=== PATIENT | female | born 1985 | race Two or more races ===

== ENCOUNTER 2021-02-17 23:37 | Emergency (ER) | payer SELFPAY ==
--- NOTE | 2021-02-17 23:54 | EDM.PDOC ---
ED HPI GENERAL MEDICAL PROBLEM - General Chief Complaint: General Stated Complaint: MEDICAL CLEARANCE Time Seen by Provider: 02/17/21 23:40 Source of Information: Reports: Patient History Limitations: Reports: No Limitations - History of Present Illness INITIAL COMMENTS - FREE TEXT/NARRATIVE: Patient is a 35-year-old female brought in police custody for medical clearance. Patient she has a history of high blood pressure does not see a physician for does not take any medication. On exam she does not have any chest pain shortness of breath fever chills nausea vomiting. Patient has no complaints today. ED ROS GENERAL - Review of Systems Review Of Systems: See Below Constitutional: Reports: No Symptoms HEENT: Reports: No Symptoms Respiratory: Reports: No Symptoms Cardiovascular: Reports: No Symptoms Endocrine: Reports: No Symptoms GI/Abdominal: Reports: No Symptoms : Reports: No Symptoms Musculoskeletal: Reports: No Symptoms Skin: Reports: No Symptoms Neurological: Reports: No Symptoms Psychiatric: Reports: No Symptoms Hematologic/Lymphatic: Reports: No Symptoms Immunologic: Reports: No Symptoms ED EXAM, GENERAL - Physical Exam Exam: See Below Exam Limited By: No Limitations General Appearance: Alert, WD/WN, No Apparent Distress Eye Exam: Bilateral Eye: EOMI, PERRL Neck: Normal Inspection, Supple, Non-Tender Respiratory/Chest: No Respiratory Distress, Lungs Clear, Normal Breath Sounds Cardiovascular: Normal Peripheral Pulses, Regular Rate, Rhythm, No Edema GI/Abdominal: Normal Bowel Sounds, Soft, Non-Tender Extremities: Normal Inspection, Normal Range of Motion Neurological: Alert, Oriented, Normal Cognition, Normal Gait Departure - Departure Time of Disposition: 23:53 Disposition: Home, Self-Care 01 Condition: Good Clinical Impression: Medical clearance for incarceration - Discharge Information *PRESCRIPTION DRUG MONITORING PROGRAM REVIEWED*: Not Applicable *COPY OF PRESCRIPTION DRUG MONITORING REPORT IN PATIENT RUBEN: Not Applicable Referrals: PCP,None [Primary Care Provider] - Additional Instructions: The following information is given to patients seen in the emergency department who are being discharged to home. This information is to outline your options for follow-up care. We provide all patients seen in our emergency department with a follow-up referral. The need for follow-up, as well as the timing and circumstances, are variable depending upon the specifics of your emergency department visit. If you don't have a primary care physician on staff, we will provide you with a referral. We always advise you to contact your personal physician following an emergency department visit to inform them of the circumstance of the visit and for follow-up with them and/or the need for any referrals to a consulting specialist. The emergency department will also refer you to a specialist when appropriate. This referral assures that you have the opportunity for follow-up care with a specialist. All of these measure are taken in an effort to provide you with optimal care, which includes your follow-up. Under all circumstances we always encourage you to contact your private physician who remains a resource for coordinating your care. When calling for follow-up care, please make the office aware that this follow-up is from your recent emergency room visit. If for any reason you are refused follow-up, please contact the Emergency Department at and asked to speak to the emergency department charge nurse. Please follow up with your primary care physician. If you do not have a primary care physician, see below: [facility] [address] [place] [id number] [facility] [address] [place] [id number] You were seen today for medical clearance. We reviewed her vital signs within normal range. States have history of high blood pressure but her blood pressures are normal range today. You have any other complaints or symptoms please follow-up to primary care physician or if he had any other concerning complaints he can return to ED as well. - Assessment/Plan Plan: Patient is a 35-year-old female brought in today for medical clearance. Patient has no complaints on exam. Patient vital signs reviewed and stable will be discharged to police custody.
== END 2021-02-18 | disposition home or self-care (01) ==
LOC: MW.ED 23:37
DX: Z02.89 Encounter for other administrative examinations (principal)
CPT/HCPCS: 99283